=== PATIENT | male | born 1965 | race Two or more races ===

== ENCOUNTER 2022-09-14 15:59 | Emergency (ER) | payer OTHER ==
[~2022-09-14] VITALS: Ht 175.3 cm; Wt 136.1 kg
[~2022-09-14 15:59] MED LIST: ORPH100T PO; ORPHENADRINE30 MG/M1 IJ; TORADOL30 MG IM; TORADOL60 MG IM; VOLTAREM 50 MG PO
[2022-09-14] MEDS ORDERED: GLIMEPIRIDE2 M1 PO (16:15)
[2022-09-14] MEDS ORDERED: METFORMIN HCL1000 M3 PO (16:15)
[2022-09-14] MEDS ORDERED: LEVOTHYROXINE25 MC1 PO (16:15)
[2022-09-14] MEDS ORDERED: LOSARTAN-HCTZ1 EACH PO (18:16)
== END 2022-09-14 18:23 | disposition home or self-care (01) ==
LOC: ER 15:59
DX: I16.9 Hypertensive crisis, unspecified (principal); E11.9 Type 2 diabetes mellitus without complications; Z79.84 Long term (current) use of oral hypoglycemic drugs; Z88.0 Allergy status to penicillin